=== PATIENT | female | born 1955 | race Hispanic/Latino ===

== ENCOUNTER → 2025-05-28 | Outpatient (CLI) | payer OTHER ==
--- NOTE | 2025-05-30 10:50 | HMCIMG ---
NM GASTRIC EMPTYING STUDY HISTORY: Abdominal pain. TECHNIQUE: 1.99 mCi of technetium 99 sulfur colloid was administered with scrambled egg.Sequential images were obtained for 90 minutes and the gastric emptying calculated. FINDINGS: There is physiologic radiotracer activity in the stomach. Radiotracer activity is also seen in the small bowel. The linear fit T1/2 is 197 minutes,which is of normal. (normal T1/2 is 90 min or less). The gastric emptying at 90 minutes is 25%%. IMPRESSION: Delayed gastric emptying suggesting of gastroparesis.
== END | disposition home or self-care (01) ==
LOC: RAH 07:05
PROVIDERS: ATTEND Internal Medicine
DX: R11.2 Nausea with vomiting, unspecified (principal)
CPT/HCPCS: 78264; A9541